=== PATIENT | female | born 1940 | race Caucasian/White ===

== ENCOUNTER → 2021-11-27 | Outpatient (CLI) | payer OTHER, SELFPAY | END | disposition home or self-care (01) | PROVIDERS: Visit Provider Student in an Organized Health Care Education/Training Program | DX: N77.1 Vaginitis, vulvitis and vulvovaginitis in diseases classified elsewhere (principal) ==

== ENCOUNTER 2022-01-14 07:37 | Observation (INO) | payer MEDICARE, SELFPAY ==
--- NOTE | 2022-01-10 12:46 | EKG12_ITS ---
Test Reason : Blood Pressure : / mmHG Vent. Rate : 056 BPM Atrial Rate : 056 BPM P-R Int : 154 ms QRS Dur : 080 ms QT Int : 460 ms P-R-T Axes : 038 039 051 degrees QTc Int : 443 ms Sinus bradycardia Otherwise normal ECG Confirmed by HO LOYOLA, WALLY ([id number]), business editor PELON ENG ([id number]) on 01/14/2022 7:20:36 AM Referred By: Dorothy Juarez Confirmed By:WALLY TEAGUE MD
[2022-01-10 14:46] LABS: Hematocrit 39.7 % (37-47); Hemoglobin 12.9 g/dL (12.0-15.0); Mean Corp Hgb Conc 32.5 g/dL (32-36); Mean Corpuscular Hgb 29.3 pg (27.0-32.0); Mean Platelet Vol. 10.3 fl (6.2-12.0); Platelet Count 206 K/mm3 (150-450); RBC Distribution Width CV 13.2 % (11.6-14.6); RBC Distribution Width SD 43.6 fl (35.1-43.9); Red Blood Count 4.41 M/mm3 (4.2-5.4); White Blood Count 6.9 K/mm3 (4.4-11.0)
[2022-01-10 15:13] LABS: Hemoglobin A1c 6.1 % (3.8-5.6)
[2022-01-10 15:42] LABS: Magnesium 2.2 mg/dL (1.6-2.6)
[2022-01-10 15:46] LABS: Anion Gap 6 (5-15); BUN 16 mg/dL (7-18); BUN/Creat Ratio 18.3 RATIO (10-20); Calcium,Total 9.3 mg/dL (8.5-10.1); Chloride 106 mmol/L (98-107); Creatinine, Serum 0.87 mg/dL (0.55-1.02); EST Glomerular Filtration Rate 66 mL/min (>60); Est Glom Filt Rate - Afr Amer 80 mL/min (>60); Glucose 93 mg/dL (74-106); Potassium 4.4 mmol/L (3.5-5.1); Sodium Level 140 mmol/L (136-145)
[2022-01-14] VITALS (12 sets, daily range): BP systolic 107–145; BP diastolic 54–72; PULSE 53–88; RESP 14–20; TEMP 36.1–36.8; O2SAT 91–100; BMI 26.5; BMI 26.6
[2022-01-14] MEDS: Acetaminophen 500 MG Tablet 1000 MG PO ×3 (06:27→18:06)
[2022-01-14] MEDS: Gabapentin 600 MG Tablet PO (06:27)
[2022-01-14] MEDS: Lactated Ringers 1,000 ML 40 ML IV (06:33)
--- NOTE | 2022-01-14 06:45 | SUR.PREOP ---
JUANJO 181, PATIENT NOT DIABETIC, HAD ENSURE DRINK AT 0300. DR JOYCE FOSTER NOTIFIED, ORDERED DO NOT GIVE INSULIN AT THIS TIME.
--- NOTE | 2022-01-14 07:11 | PCM.HP.BLA ---
History and Physical Date of Admission: 01/14/22 HPI: 81-year-old female with pelvic organ prolapse. Patient had pessary for several years, no longer effective for management. Patient was increased in pessary size, however then developed a cervical erosion which is now resolved. Decision for surgical management made. MEDICAL HISTORY: 1. PVCs, well controlled 2. Macular degeneration ALLERGIES: No Known Drug Allergies MEDICATIONS HISTORY: 1. aspirin 81 mg chewable tablet, 1 PO QD 2. atenolol 25 mg tablet, 1 PO QD SURGICAL HISTORY: 1. cholecystectomy 2. tonsils MENSTRUAL HISTORY: LMP Known?- Postmenopausal, Age Onset Menarche - 14 PAST PREGNANCIES: Total Pregnancies - 5; Full Term Pregnancies - 4; Premature - 0; Abortions, Induced - 0; Abortions, Spontaneous - 1; Ectopics - 0; Multiple Births - 0; Living Children - 4 FAMILY HISTORY: Father - Hypertension; Father - Gastrointestinal disease; SOCIAL HISTORY: Alcohol Use - denies drinking Smoking - denies smoking Drugs - Denies REVIEW OF SYSTEMS: GENERAL - Denies fever, or chills SKIN - Denies skin changes EYES - cataract(s) and macular degeneration EARS - Denies difficulty hearing NOSE - Denies nasal congestion or bleeding MOUTH - Denies sore throat or difficulty swallowing NECK - Denies pain or swelling RESPIRATORY - Denies shortness of breath or wheezing CARDIOVASCULAR - irregular rhythm GASTROINTESTINAL - Denies nausea, vomiting, diarrhea, constipation GENITOURINARY - incontinence (stress) MUSCULOSKELETAL - arthritis NEUROLOGICAL - Denies localized numbness or weakness PSYCHIATRIC - Denies depression or anxiety ENDOCRINE - Denies heat or cold intolerance, weight loss or gain HEMATO-IMMUNOLOGIC - Denies excessive bleeding with cuts PHYSICAL EXAMINATION BP- 130/70 Sitting, Right arm, regular cuff Weight- 160.0 lbs Height- 65.0 inch BMI:26.62 CONSTITUTIONAL - NAD, well nourished, and well developed SKIN - No rash, lesions, or ulcers HEENT - Normocephalic, PERRLA, EOMI LUNGS - CTA x2 without wheezes, crackles or rales CARDIAC - Regular rate and rhythm without rubs, murmurs, or gallops EXTREMITIES - No edema or calf tenderness NEUROLOGICAL - Cranial nerves II-XII grossly intact PSYCHIATRIC - A and O to time, place, person, mood and affect ASSESSMENT: PLAN BY DIAGNOSIS: 1. Erosion And Ectropion Of Cervix Uteri, Uterovaginal Prolapse and Unspecified Proceed with TVH-BSO, anterior and posterior repair. Possible McCulls culdoplasty, possible uterosacral ligament suspension. Cystoscopy. R/B/A discussed. Risks include, but are not limited to: risk of bleeding to the point of transfusion, infection, injury to surrounding tissue (bowel/bladder/uterine perforation), VTE, ICU admission. Pt aware and consented
[2022-01-14 07:26] LABS: Bedside Glucose 181 mg/dL (74-106)
--- NOTE | 2022-01-14 07:30 | HYST_PTH ---
PATIENT: ANNALISE ARREDONDO LOC: [facility] U#:[id number] AGE/SX: 81/F ROOM: IN313 RE01/14/[address]: Dr. Dorothy Juarez DO : 1940 BED: 1 DIS: 01/15/2022 SPEC #: [id number] RECD: 01/14/22 11:46 STATUS: STACY GREENE #: [id number] YASMINE: 01/14/22 07:[address]: Dorothy Juarez DEPT: SURGICAL PATHOLOGY RECD BY: Lucille Smyth ENTERED: 01/14/22 12:50 SP TYPE: HYSTERECT OTHR DR: Dr. Cruz Rodríguez MD Tissues: Uterus, NOS Procedures: Surgery Specimen Level V HEADER OPERATION: ERAS, total vaginal hysterectomy PRE-OP DIAGNOSIS: Erosion and ectropion of cervix uteri, uterovaginal prolapse TISSUE SUBMITTED: Uterus and cervix MICROSCOPIC DIAGNOSIS Uterus, hysterectomy: Cervix ? nabothian cysts, mild chronic inflammation and hyperkeratosis. Endometrium and polyp ? simple cystic hyperplasia without atypia. Myometrium ? adenomyosis. AM:juan daniel 01/15/2022 MICROSCOPIC DESCRIPTION Slides are reviewed. GROSS DESCRIPTION Received in fixative is one container labeled with the patient's name and designated uterus and cervix. The specimen consists of a hysterectomy specimen consisting of uterus with cervix weighing 47 gm and measuring 10 x 4.5 x 3.5 cm. The serosal surface is nguyen, glistening. The ectocervical mucosa is unremarkable. The external os is oval and patulous in contour. The endocervical canal measures 3.5 cm in length and the endocervical mucosa is nguyen, glistening and unremarkable. Sections of the cervix reveal a few cysts filled with mucoid material. The triangular endometrial cavity measures 4 cm in length and up to 2.5 cm in width. Two sessile polyps are noted measuring 0.5 and 1.5 cm in greatest dimension. The myometrial wall underneath the polyp is not indurated. The rest of the endometrium is nguyen, glistening and measures up to 0.2 cm in thickness. Sections of the uterine wall do not reveal any mass lesion and measures 1.5 cm in thickness. Lime Hide Inspector sections are submitted in seven cassettes as follows: 1??anterior cervix, 2 - posterior cervix, 3 & 4 - anterior uterine wall, 5 & 6 - posterior uterine wall, 7??endometrial polyps with underlying uterine wall. / SJ:juan daniel 01/14/2022 TC:5 CPT: 33526
[2022-01-14] MEDS: Cefazolin 2 GM in 0.9% Normal Saline 100 ML IV (07:40)
--- NOTE | 2022-01-14 07:46 | SUR.PREOP ---
ACCUCHECK 181, PATIENT HAD ENSURE DRINK AT APPROXIMATELY 0300, IS NOT DIABETIC. DO NOT GIVE INSULIN PER DR JOYCE FOSTER.
[2022-01-14] MEDS: Lidocaine 1% /Epi 1:100 (20ml) 20 ML Vial (09:22)
--- NOTE | 2022-01-14 10:08 | PCM.OPRPT ---
Report of Operation Date of Procedure: 01/14/22 Pre-Operative Diagnosis: Pelvic Organ Prolapse Post-Operative Diagnosis: Pelvic organ prolapse Surgery/Procedure Performed:: Total vaginal hysterectomy, uterosacral ligament suspension, cystoscopy Description of Surgical Findings:: Normal external genitalia. No posterior prolapse. Grade 3 uterine and anterior prolapse. Intact bladder dome on cystoscopy, bilateral ureteral jets x2. Type of Anesthesia: General Specimen's removed: Uterus and cervix Estimated Blood Loss (mL): 50 cc Fluids Replaced: 100 cc Description of Procedure: Indications/risk/benefits: 81-year-old female with history of pelvic organ prolapse, failed pessary use. Plan for total vaginal hysterectomy, bilateral salpingo-oophorectomy, anterior and posterior repair, possible Frey's culdoplasty, possible uterosacral ligament suspension, cystoscopy. All risk, benefits, alternatives were discussed with patient. Risk include but are not limited to: Risk of bleeding to the point transfusion, infection, injury to surrounding tissue including bowel/bladder/uterine perforation, VTE, ICU admission. Patient aware and consented. Procedure: Patient taken to the operating room and placed under general anesthesia. Patient placed in the dorsal lithotomy position and prepped and draped in the usual sterile fashion. Fine catheter placed. Weighted speculum placed in posterior vagina. Lidocaine and injected circumferentially at the cervicovaginal junction. Vagina incised at cervicovaginal junction using scalpel circumferentially. Owens scissors utilized to dissect vaginal epithelium away from the cervix. Blunt dissection also completed. Peritoneum and vaginal epithelium grasped with pickups anteriorly and incised with Owens scissors. Peritoneum entered. Destiney retractor placed into peritoneal cavity lifting bladder away from uterus. Posterior peritoneum grasped with pickups and incised with Owens scissors, peritoneum entered. Posterior peritoneum tagged to vaginal epithelium with [id number] stitch. Long weighted speculum placed into abdominal cavity. Left uterosacral ligaments clamped and cut with Owens scissors. Transfixation suture placed. Suture tagged with hemostat. Right uterosacral ligament clamped and cut, transfixation suture placed. Suture tagged with hemostat. Left cardinal ligament clamped and cut. Single stitch placed, clamped flashed, second stitch placed. Right cardinal ligament clamped cut and tied in a similar fashion. Bilateral utero-ovarian ligaments clamped and cut. Single stitch placed, clamps flashed, second stitch placed and clamp removed. Left remaining utero-ovarian ligament clamped and cut. Free tie placed, clamped flashed. Second transfixation suture placed. Right remaining portion of utero ovarian ligament clamped and cut. Free tie placed and clamp flashed. Second transfixation suture placed. Unable to safely visualize bilateral tubes and ovaries, therefore decision to leave in place was made. Long weighted speculum removed. A short weighted speculum placed. Tagged laps placed through the vaginal opening into abdominal cavity to retract bowel away from vagina. Posterior peritoneum sutured in a running fashion starting at 3 o'clock position to 9 o'clock position. Suture placed in the posterior peritoneum, closing this space. Laps removed. Cystoscopy performed. Noting intact bladder dome and bilateral ureteral jets. Uterosacral ligament sutures tied together, suspending vaginal apex. Vagina closed in a running locking stitch starting at left apex. Anterior repair then started. 2 Allis clamps used to grasp anterior vaginal epithelium. Vaginal epithelium injected with lidocaine. Scalpel incised vagina between 2 Allis clamps vertically. Allis clamps used to grasp vaginal epithelium. Metzenbaum scissors utilized to dissect vaginal wall away from the bladder. This was completed anterior, posteriorly and laterally. Interrupted horizontal mattress stitches placed in the fascial layer between the bladder and vagina lifting bladder. Vaginal epithelium and excess removed with Metzenbaum scissors. Cystoscopy completed again. Bilateral ureteral jets noted, intact bladder dome. Patient did receive 1 cc methylene blue while waiting for right ureter to efflux, which it did as methylene blue was given therefore the remainder was not given to patient. Vaginal epithelium reapproximated with a running locking stitch. Vaginal stitches hemostatic. Weighted speculum removed. Posterior compartment examined, no prolapse noted therefore posterior repair was not completed. At the end of the procedure all needle, lap, sponge counts were correct x3. Urine output: 50 cc Complications None
[2022-01-14] MEDS: Lactated Ringers 1,000 ML 999 ML IV (12:45)
--- NOTE | 2022-01-14 18:26 | NURSING ---
pt had 1 pad with minimal drnge. mesh panties and new pad provided after standing at bedside
[2022-01-14] MEDS: Docusate Sodium 100 MG Capsule PO (21:46)
[2022-01-15 00:27] VITALS: BP 108/60; PULSE 56; RESP 18; TEMP 36.7; O2SAT 96
[2022-01-15] MEDS: Acetaminophen 500 MG Tablet 1000 MG PO ×2 (00:29→06:10)
[2022-01-15 03:50] VITALS: BMI 26.6
[2022-01-15 05:48] VITALS: BP 109/54; PULSE 59; RESP 18; TEMP 37.1; O2SAT 95
[2022-01-15 05:58] LABS: Hematocrit 33.1 % (37-47); Hemoglobin 10.9 g/dL (12.0-15.0); Mean Corp Hgb Conc 32.9 g/dL (32-36); Mean Corpuscular Hgb 29.7 pg (27.0-32.0); Mean Corpuscular Volume 90.2 fL (81-99); Mean Platelet Vol. 10.4 fl (6.2-12.0); Platelet Count 145 K/mm3 (150-450); RBC Distribution Width CV 12.9 % (11.6-14.6); RBC Distribution Width SD 42.8 fl (35.1-43.9); Red Blood Count 3.67 M/mm3 (4.2-5.4)
--- NOTE | 2022-01-15 07:25 | PN.OBGYN_ITS ---
Subjective Subjective Patient up in chair at bedside. Rested okay overnight. Tolerating p.o. Passing gas. Denies pain. Objective Data Objective Data Vital Signs: Vital Signs Temp Pulse Resp BP Pulse Ox 98.8 F 59 L 18 109/54 L 95 01/15/22 05:48 01/15/22 05:48 01/15/22 05:48 01/15/22 05:48 01/15/22 05:48 Oxygen Flow Rate (L/min) 4 Oxygen Delivery Method Room Air Weight: 72.4 kg Body Mass Index (BMI) 26.5 Intake & Output: Intake and Output for Last 24 Hours 01/13/22 01/14/22 01/15/22 23:59 23:59 23:59 Intake Total 2611.6 / 3531.6 1320 / 1320 Output Total 500 / 2550 3200 / 3200 Balance 2111.6 / 981.6 -1880 / -1880 Lab / Micro Data Result Diagrams: 01/15/22 05:19 01/10/22 14:01 Labs: Laboratory Results - last 24 hr 01/14/22 06:25: POC Glucose 181 H 01/15/22 05:19: WBC 7.0, RBC 3.67 L, Hgb 10.9 L, Hct 33.1 L, MCV 90.2, MCH 29.7, MCHC 32.9, RDW Std Deviation 42.8, RDW Coeff of Conner 12.9, Plt Count 145 L, MPV 10.4 Physical Exam Const alert, oriented x3 and no apparent distress HEENT normocephalic Head and Scalp: atraumatic Resp normal respiratory effort Cardio regular rate GI normal to inspection, nondistended, normoactive bowel sounds Extremity no pedal edema Neuro no focal motor deficits and no sensory deficits noted Psych mental status grossly normal and affect normal Assessment & Plan (1) Prolapse of female pelvic organs: PLAN: Postop day 1 status post total vaginal hysterectomy, uterosacral ligament suspension, anterior repair, cystoscopy for pelvic organ prolapse. Patient with pain well controlled on Tylenol. Declines home-going oxycodone. Acute blood loss anemia secondary to surgery, vitals are stable. Iron supple ment on home-going. Catheter has been removed, awaiting void. Plan to discharge home today pending spontaneous void. F/u 2 weeks post operative appointment. (2) Pelvic organ prolapse quantification stage 3 cystocele: (3) Post-operative pain:
--- NOTE | 2022-01-15 07:28 | PCM.DC ---
Discharge Instructions Diet Discharge Diet: No restrictions Activity Discharge Activity: Return to Normal Activity and May Shower May resume sexual activity in: 6 weeks Weight Bearing Status: Weight bearing as tolerated Dressing / Incision Call your doctor if your incision/area has: Continuous Slow Oozing, Sudden Increased Bleeding, Increased Redness, Foul Smelling Discharge and Swelling at the incision site Call your doctor if you observe: Fever of 101 or Higher, Inability to urinate, Inability to have a bowel movement, Using more than 1 pad per hour, Fainting spells, Swelling in the ankles, Chest pain and Uncontrolled pain Cleanse incision/area with: Soap & Water Follow Up Care Please Follow Up With: Dorothy Juarez DO When: 2 weeks post operative appointment Test Results: Test results from this visit will be discussed in further detail at your follow-up appointment, if applicable. Discharge Plan Admission Admit Date/Time: 01/14/22 07:37 Primary Reason for Your Visit: Hysterectomy Attending Provider: Dorothy Juarez Primary Care Provider: Cruz Rodríguez Discharge Orders/Prescriptions Prescriptions: No Action atenolol 25 mg tablet 25 mg PO QHS RF: 0 aspirin [Telma Low Dose Aspirin] 81 mg tablet,delayed release (DR/EC) 81 mg PO DAILY RF: 0 calcium carbonate-vitamin D3 [Calcium 500 + D] 500 mg-10 mcg (400 unit) Tablet,Chewable 1 tab PO DAILY RF: 0 cholecalciferol (vitamin D3) [Vitamin D3] 50 mcg (2,000 unit) tablet 50 mcg PO DAILY RF: 0 PreserVision AREDS 7,160 unit- 113 mg-100 unit tablet 1 tab PO BID RF: 0 flaxseed 1,000 mg Capsule 4,000 mg PO DAILY RF: 0 Referrals / Follow Up: Cruz Rodríguez MD [Primary Care Provider] - Disposition Disposition (needs filled in before D/C Order can be placed): Home, Self Care
[2022-01-15 09:07] VITALS: BP 102/58; PULSE 59; RESP 17; TEMP 36.6; O2SAT 97
[2022-01-15] MEDS: Enoxaparin 40 MG/0.4 ML Syringe SC (09:14)
[2022-01-15] MEDS: Docusate Sodium 100 MG Capsule PO (09:15)
[2022-01-15 09:21] VITALS: BMI 26.6
[2022-01-15 13:08] VITALS: BP 134/73; PULSE 68; RESP 17; TEMP 36.8; O2SAT 95
== END 2022-01-15 13:10 | disposition home or self-care (01) ==
LOC: MS3 01-15 07:30 → AC 01-16 08:40 → MS3 01-16 08:40 → SDC 01-16 08:40
PROVIDERS: Anesthesiology; Admitting Provider Student in an Organized Health Care Education/Training Program; PCP Internal Medicine; Referring Provider Student in an Organized Health Care Education/Training Program; Visit Provider Student in an Organized Health Care Education/Training Program
PROC: (CPT 58260; principal; 2022-01-14 07:10)
PROC: (CPT 57260; 2022-01-14 07:10)
DX: N81.4 Uterovaginal prolapse, unspecified (principal); N86 Erosion and ectropion of cervix uteri; I49.3 Ventricular premature depolarization; Z79.899 Other long term (current) drug therapy; Z79.82 Long term (current) use of aspirin; M19.90 Unspecified osteoarthritis, unspecified site; R25.2 Cramp and spasm; K21.9 Gastro-esophageal reflux disease without esophagitis; R00.1 Bradycardia, unspecified; R32 Unspecified urinary incontinence
CPT/HCPCS: 58260; 57425; 57240; 00944; 36415; 80048; 82962; 83036; 83735; 85027; 86850; 86900; 86901; 88307; 93005; 96372; 99218; 99251; J7120; G0378; G0463; J2405; J3475; Q9968